=== PATIENT | female | born 1975 | race Caucasian/White ===

== ENCOUNTER 2018-09-08 07:24 | Emergency (ER) | END 2018-09-08 14:21 | disposition home or self-care (01) ==

== ENCOUNTER 2018-10-12 12:27 | Emergency (ER) | END 2018-10-12 14:40 | disposition home or self-care (01) ==

== ENCOUNTER 2019-07-18 20:08 | Emergency (ER) | payer BC ==
[~2019-07-18] VITALS: Ht 167.6 cm; Wt 83.5 kg
[~2019-07-18 20:08] MED LIST: HYDR-3980 PO; HYDR-4011 PO; IBUP800T48 PO; MED4DP PO; NAPR-985 PO; OXYC-279 PO; PRED20TA PO
[2019-07-18 20:24] VITALS: Ht 167.6 cm; Wt 83.5 kg
[2019-07-18] MEDS ORDERED: KETOROLAC 30 MG INJ IM STA (21:45)
[2019-07-18] MEDS ORDERED: HYDROCODONE/APAP (10/325) TAB PO ONE (23:30)
[2019-07-18 23:32] VITALS: BP 133/73; PULSE 76; RESP 18
== END 2019-07-18 23:33 | disposition home or self-care (01) ==
LOC: FTE 20:08
DX: S52.592A Other fractures of lower end of left radius, initial encounter for closed fracture (principal); W01.0XXA Fall on same level from slipping, tripping and stumbling without subsequent striking against object, initial encounter; Y92.9 Unspecified place or not applicable
CPT/HCPCS: 29125; 73090; 73110; 73130; 81025; 96372; 99284; J1885